=== PATIENT | male | born 1980 | race Caucasian/White ===

== ENCOUNTER 2022-02-16 16:12 | Emergency (ER) | payer OTHER ==
[~2022-02-16] VITALS: Ht 185.4 cm; Wt 81.6 kg
[2022-02-16 16:24] VITALS: BP 136/97
[2022-02-16] MEDS ORDERED: NACL 0.9% 2,000 ML IV ONE (16:40)
--- NOTE | 2022-02-16 17:07 | NUR ---
LAB UNABLE TO DRAW LABS, DR BERMUDEZ MADE AWARE. WILL ATTEMPT WITH IV
[2022-02-16 17:46] LABS: BASOPHILS # (AUTO) 0.1 K/uL (0.00-0.22); BASOPHILS % (AUTO) 0.8 % (0.0-2.0); EOSINOPHILS # (AUTO) 0.1 K/uL (0-0.4); EOSINOPHILS % (AUTO) 1.2 % (0.0-4.0); HEMATOCRIT 41.5 % (36-48); LYMPHOCYTES # (AUTO) 2.5 K/uL (2.5-16.5); LYMPHOCYTES % (AUTO) 31.4 % (20.5-51.1); MEAN CORPUSCULAR HEMOGLOBIN 27 pg (27-31); MEAN CORPUSCULAR HGB CONC 34 g/dL (33-37); MEAN CORPUSCULAR VOLUME 80.4 fL (80-94); MONOCYTES # (AUTO) 0.4 K/uL (0.8-1.0); MONOCYTES % (AUTO) 5.3 % (1.7-9.3); NEUTROPHILS # (AUTO) 4.9 K/uL (1.8-7.7); NEUTROPHILS % (AUTO) 61.3 % (42.2-75.2); PLATELET COUNT (AUTO) 415 K/uL (140-450); RED BLOOD CELL COUNT(AUTO) 5.16 MIL/uL (4.20-5.40); RED CELL DISTRIBUTION WIDTH 14.1 % (11.6-13.7); WHITE BLOOD COUNT (AUTO) 8.1 K/uL (4.8-10.8)
[2022-02-16 18:11] LABS: ALBUMIN 3.5 g/dL (3.4-5.0); ANION GAP 13.4 (8-16); ASPARTATE AMINOTRANSFERASE 13 U/L (15-37); CHLORIDE 101 mmol/L (98-107); CREATININE 0.7 mg/dL (0.6-1.3); GFR ARICAN-AMERICAN 158 mL/min (>90); GLUCOSE 399 mg/dL (74-106); PHOSPHORUS 3.9 mg/dL (2.5-4.9); POTASSIUM 4.4 mmol/L (3.5-5.1); SODIUM SERUM 136 mmol/L (136-145); THYROID STIMULATING HORMONE 1.36 uIU/mL (0.34-3.74); TOTAL BILIRUBIN 0.3 mg/dL (0.0-1.0); UREA NITROGEN, BLOOD 12 mg/dL (7-18)
--- NOTE | 2022-02-16 18:25 | NUR ---
41/M C/O INTERMITTENT CHEST PAIN RADIATING DOWN LEFT SIDE X1 WEEK. PATIENT DENIES RECENT INJURY OR TRAUMA, ADMITS TO USE OF METH AND WEED. PATIENT ALSO REPORTS USING A FRIENDS INSULIN BUT REPORTS HAS NEVER BEEN DX WITH DM. PATIENT DENIES SOB, FEVERS, CHILLS, N/V/D.
[2022-02-16] MEDS ORDERED: METF-430 PO (18:58)
--- NOTE | 2022-02-16 19:32 | NUR ---
Pt report given to ALEJANDRO KENDALL. Transfer of care at this time.
--- NOTE | 2022-02-16 19:41 | NUR ---
IV removed, catheter intact and site benign. Applied folded 4x4 gauze and tape to stop bleeding.
[2022-02-16 19:43] VITALS: BP 126/75
--- NOTE | 2022-02-16 19:43 | NUR ---
Patient discharged. Written and verbal after care instructions given and explained. Patient alert, oriented and verbalized understanding of instructions. Ambulatory with steady gait. All questions addressed prior to discharge. ID band removed. Patient advised to follow up with PMD. Rx of Metformin HCL given. Patient educated on indication of medication including possible reaction and side effects. Opportunity to ask questions provided and answered.
== END 2022-02-16 19:43 | disposition home or self-care (01) ==
LOC: MED 16:12 → EDSEX 16:12 → MED 19:43
DX: E11.65 Type 2 diabetes mellitus with hyperglycemia (principal); R07.89 Other chest pain; F17.210 Nicotine dependence, cigarettes, uncomplicated; F12.90 Cannabis use, unspecified, uncomplicated; F15.90 Other stimulant use, unspecified, uncomplicated; Z79.84 Long term (current) use of oral hypoglycemic drugs
CPT/HCPCS: 36415; 36600; 71045; 80053; 82803; 83735; 84100; 84443; 84484; 85025; 93005; 96360; 99285; J7030

== ENCOUNTER 2022-07-01 05:37 | Emergency (ER) | payer OTHER ==
[~2022-07-01] VITALS: Ht 185.4 cm; Wt 83.5 kg
[~2022-07-01 05:37] MED LIST: METF-430 PO
[2022-07-01 05:48] VITALS: BP 142/84
--- NOTE | 2022-07-01 05:59 | NUR ---
PT AMBULATED TO ED9, REPORT GIVEN TO LINH KENDALL, URINE SAMPLE PROVIDED.
--- NOTE | 2022-07-01 06:05 | NUR ---
Pt coming from home ambulatory with steady gait. Pt c/o left wrist pain and redness. Pt states he was working and dropped a machine on wrist. Pain currently at a 4 radiating to forearm. Swelling noted. Has hx of Diabetes. Accucheck done and results notified to Dr. Patricia and charted. VSS. Pt is A&Ox4. Skin intact. NKA. No chest pain and no sob. Denies n/v. Bed in lowest position.
--- NOTE | 2022-07-01 06:10 | NUR ---
Dr. Patricia at bedside examining pt.
--- NOTE | 2022-07-01 06:11 | NUR ---
RADIOLOGY AT BEDSIDE
--- NOTE | 2022-07-01 06:12 | NUR ---
X-Ray being done at bedside.
[2022-07-01] MEDS ORDERED: NACL 0.9% 1,000 ML IV ONE (06:20)
[2022-07-01 07:11] LABS: BASOPHILS % (AUTO) 0.1 % (0.0-2.0); EOSINOPHILS # (AUTO) 0.1 K/uL (0-0.4); EOSINOPHILS % (AUTO) 1.1 % (0.0-4.0); HEMATOCRIT 42.2 % (36-52); HEMOGLOBIN 14.8 g/dL (12.0-18.0); LYMPHOCYTES # (AUTO) 3.4 K/uL (2.0-11.5); MEAN CORPUSCULAR HEMOGLOBIN 29 pg (27-31); MEAN CORPUSCULAR HGB CONC 35 g/dL (33-37); MEAN CORPUSCULAR VOLUME 81.9 fL (80-94); MONOCYTES # (AUTO) 0.6 K/uL (0.8-1.0); MONOCYTES % (AUTO) 5.8 % (1.7-9.3); NEUTROPHILS # (AUTO) 6.8 K/uL (1.8-7.7); PLATELET COUNT (AUTO) 434 K/uL (140-450); RED BLOOD CELL COUNT(AUTO) 5.16 MIL/uL (4.20-6.10); RED CELL DISTRIBUTION WIDTH 13.3 % (11.6-13.7); WHITE BLOOD COUNT (AUTO) 10.9 K/uL (4.8-10.8)
[2022-07-01 07:19] LABS: ACETONE, SERUM NEGATIVE (NEGATIVE); ALBUMIN 3.4 g/dL (3.4-5.0); ANION GAP 11.7 (8-16); ASPARTATE AMINOTRANSFERASE 11 U/L (15-37); CARBON DIOXIDE 29.3 mmol/L (21-32); CHLORIDE 96 mmol/L (98-107); CREATININE 0.7 mg/dL (0.6-1.3); GFR ARICAN-AMERICAN 158 mL/min (>90); GLUCOSE 372 mg/dL (74-106); SODIUM SERUM 133 mmol/L (136-145); TOTAL BILIRUBIN 0.2 mg/dL (0.0-1.0); UREA NITROGEN, BLOOD 14 mg/dL (7-18)
--- NOTE | 2022-07-01 07:19 | NUR ---
Second accucheck done and results were 317 after 1L NS.
[2022-07-01] MEDS ORDERED: METF-430 PO (07:44)
[2022-07-01 08:05] VITALS: BP 145/70
--- NOTE | 2022-07-01 08:06 | NUR ---
Patient discharged with v/s stable. Written and verbal after care instructions given and explained. Patient alert, oriented and verbalized understanding of instructions. Ambulatory with steady gait. All questions addressed prior to discharge. ID band removed. Patient advised to follow up with PMD. Rx of METFORMIN given. Patient educated on indication of medication including possible reaction and side effects. Opportunity to ask questions provided and answered.
== END 2022-07-01 08:05 | disposition home or self-care (01) ==
LOC: MED 05:37
DX: E11.65 Type 2 diabetes mellitus with hyperglycemia (principal); M25.532 Pain in left wrist; Z79.4 Long term (current) use of insulin; Z79.899 Other long term (current) drug therapy
CPT/HCPCS: 36415; 73110; 80053; 82009; 82948; 85025; 96360; 99284; Q0092; J7030